=== PATIENT | male | born 1970 | race Caucasian/White ===

== ENCOUNTER 2020-03-07 18:55 | Emergency (ER) | payer MEDICAID ==
[~2020-03-07] VITALS: Ht 172.7 cm; Wt 75.0 kg
[2020-03-07 22:56] LABS: COVID AG,FIA SOURCE NASOPHARYNGEAL
[2020-03-07 23:01] LABS: BASOPHILS % (AUTO) 0.8 % (0.0-2.0); EOSINOPHILS % (AUTO) 3.2 % (1.0-6.0); HEMOGLOBIN 13.7 g/dL (13.5-17.5); LYMPHOCYTES # (AUTO) 2.1 K/uL (1.0-4.8); LYMPHOCYTES % (AUTO) 22.5 % (22.0-44.0); MEAN CORPUSCULAR HGB CONC 33.4 G/dL (31.0-37.0); MEAN CORPUSCULAR VOLUME 96 fL (80-100); MONOCYTES # (AUTO) 0.8 K/uL (0.1-1.0); MONOCYTES % (AUTO) 8.3 % (2.0-9.0); NEUTROPHILS # (AUTO) 6.2 K/uL (1.8-7.7); NEUTROPHILS % (AUTO) 65.2 % (40.0-70.0); PLATELET COUNT (AUTO) 283 K/uL (150-450); RED BLOOD CELL COUNT(AUTO) 4.28 MIL/uL (4.50-5.90); RED CELL DISTRIBUTION WIDTH 13.8 % (11.5-14.5)
[2020-03-07 23:15] LABS: ALANINE AMINOTRANSFERASE 41 U/L (12-78); ALKALINE PHOSPHATASE 90 U/L (46-116); ASPARTATE AMINOTRANSFERASE 30 U/L (15-37); BILIRUBIN,TOTAL 0.6 mg/dL (0.1-1.0); CALCIUM, TOTAL 9.6 mg/dL (8.8-10.5); CARBON DIOXIDE 27 mmol/L (22-29); GLOMERULAR FILTR. RATE CALC > 60 mL/min (>60); GLUCOSE,RANDOM 93 mg/dL (70-110); TOTAL PROTEIN, SERUM 8.8 g/dL (6.4-8.2); UREA NITROGEN, BLOOD 12 mg/dL (7-18)
[2020-03-07 23:22] LABS: ANION GAP 8 mmol/L (8-16); CHLORIDE 101 mmol/L (98-107); POTASSIUM 3.9 mmol/L (3.5-5.1); SODIUM SERUM 136 mmol/L (136-145)
[2020-03-08] MEDS ORDERED: IOVERSOL 350 MG/ML 100 ML VIAL ONE
[2020-03-08] MEDS ORDERED: SODIUM CHLORIDE 0.9% 100 ML ONE (00:01)
[2020-03-08 02:39] VITALS: BP 130/74
== END 2020-03-08 00:42 | disposition short-term general hospital (02) ==
LOC: EMS 18:55
DX: T17.298A Other foreign object in pharynx causing other injury, initial encounter (principal); F17.210 Nicotine dependence, cigarettes, uncomplicated; Z20.822 Contact with and (suspected) exposure to COVID-19; W45.8XXA Other foreign body or object entering through skin, initial encounter; Y93.89 Activity, other specified; Y92.89 Other specified places as the place of occurrence of the external cause; Y99.8 Other external cause status
CPT/HCPCS: 36415; 70490; 80053; 85025; 87426; 99285; J7050; Q9967

== ENCOUNTER 2020-08-29 10:02 | Emergency (ER) | payer MEDICAID ==
[~2020-08-29] VITALS: Ht 167.6 cm; Wt 68.2 kg
[2020-08-29] MEDS ORDERED: KETOROLAC TROMETHAMINE 60 MG/2 ML VIAL IM ONE (12:30)
[2020-08-29] MEDS ORDERED: OxyCODONE HCL/ACETAMINOPHEN 5-325 MG TABLET PO ONE (12:30)
[2020-08-29 13:25] VITALS: BP 131/70
== END 2020-08-29 13:26 | disposition home or self-care (01) ==
LOC: EMS 10:29
DX: S30.0XXA Contusion of lower back and pelvis, initial encounter (principal); S80.11XA Contusion of right lower leg, initial encounter; S20.212A Contusion of left front wall of thorax, initial encounter; W19.XXXA Unspecified fall, initial encounter; Y93.89 Activity, other specified; Y92.89 Other specified places as the place of occurrence of the external cause; Y99.8 Other external cause status
CPT/HCPCS: 29505; 71101; 72100; 73562; 96372; 99285; J1885

== ENCOUNTER 2021-02-26 12:01 | Emergency (ER) | payer MEDICAID ==
[~2021-02-26] VITALS: Ht 177.8 cm; Wt 72.7 kg
[2021-02-26] MEDS ORDERED: KETOROLAC TROMETHAMINE 10 MG TABLET PO ONE (13:45)
[2021-02-26] MEDS ORDERED: METHOCARBAMOL 500 MG TABLET PO ONE (13:45)
[2021-02-26 14:17] LABS: APPEARANCE,URINE CLEAR (CLEAR); BILIRUBIN,URINE NEGATIVE (NEGATIVE); GLUCOSE, URINE (UA) NEGATIVE (NEGATIVE); KETONES,URINE NEGATIVE (NEGATIVE); LEUKOCYTE ESTERASE ,URINE NEGATIVE (NEGATIVE); NITRATE,URINE NEGATIVE (NEGATIVE); OCCULT BLOOD,URINE NEGATIVE (NEGATIVE); PROTEIN,URINE NEGATIVE (NEGATIVE)
[2021-02-26 14:29] VITALS: BP 141/72
== END 2021-02-26 15:00 | disposition home or self-care (01) ==
LOC: EMS 12:04
DX: S20.212A Contusion of left front wall of thorax, initial encounter (principal); W18.39XA Other fall on same level, initial encounter; Y93.89 Activity, other specified; Y92.89 Other specified places as the place of occurrence of the external cause; Y99.8 Other external cause status
CPT/HCPCS: 81003; 99283

== ENCOUNTER 2021-11-22 19:44 | Emergency (ER) | payer MEDICAID ==
[~2021-11-22] VITALS: Ht 177.8 cm; Wt 72.0 kg
[2021-11-22] MEDS ORDERED: KETOROLAC TROMETHAMINE 30 MG/ML VIAL IM ONE (20:15)
[2021-11-22 20:32] LABS: APPEARANCE,URINE CLEAR (CLEAR); BILIRUBIN,URINE NEGATIVE (NEGATIVE); GLUCOSE, URINE (UA) NEGATIVE (NEGATIVE); KETONES,URINE NEGATIVE (NEGATIVE); LEUKOCYTE ESTERASE ,URINE NEGATIVE (NEGATIVE); NITRATE,URINE NEGATIVE (NEGATIVE); OCCULT BLOOD,URINE NEGATIVE (NEGATIVE); PROTEIN,URINE TRACE mg/dL (NEGATIVE); SPECIFIC GRAVITIY, URINE 1.024 (1.003-1.030)
[2021-11-22 21:49] VITALS: BP 138/86
== END 2021-11-22 21:51 | disposition home or self-care (01) ==
LOC: EMS 19:47
DX: R07.89 Other chest pain (principal); Z98.890 Other specified postprocedural states
CPT/HCPCS: 99284; 71045; 81003; 96372; J1885

== ENCOUNTER 2022-07-27 06:58 | Emergency (ER) | payer MEDICAID ==
[~2022-07-27] VITALS: Ht 172.7 cm; Wt 77.3 kg
[2022-07-27] MEDS ORDERED: PROPARACAINE HCL 0.5% 15 ML OPHTHALMIC SOLUTION OU ONE (07:30)
[2022-07-27] MEDS ORDERED: FLUORESCEIN SODIUM 1 MG STRIP OU ONE (07:30)
[2022-07-27] MEDS ORDERED: HYDR-4723 PO (09:08)
[2022-07-27] MEDS ORDERED: ERYT3.5O8 OD (09:08)
[2022-07-27 09:40] VITALS: BP 125/76
== END 2022-07-27 10:11 | disposition home or self-care (01) ==
LOC: EMS 06:59
DX: T15.01XA Foreign body in cornea, right eye, initial encounter (principal); F17.210 Nicotine dependence, cigarettes, uncomplicated; Z98.890 Other specified postprocedural states; W45.8XXA Other foreign body or object entering through skin, initial encounter; Y93.89 Activity, other specified; Y92.89 Other specified places as the place of occurrence of the external cause; Y99.8 Other external cause status
CPT/HCPCS: 99173; 99283

== ENCOUNTER 2022-12-08 10:03 | Emergency (ER) | payer MEDICAID ==
[~2022-12-08] VITALS: Ht 170.2 cm; Wt 72.7 kg
[~2022-12-08 10:03] MED LIST: ERYT3.5O8 OD; HYDR-4723 PO
[2022-12-08 12:07] VITALS: BP 138/77; PULSE 62; RESP 16; TEMP 97.6
[2022-12-08] MEDS ORDERED: LIDO1ADH63 TP (13:08)
[2022-12-08] MEDS ORDERED: CYCL-448 PO (13:09)
[2022-12-08] MEDS ORDERED: CYCLOBENZAPRINE HCL 10 MG TABLET PO ONE (13:15)
[2022-12-08] MEDS ORDERED: KETOROLAC TROMETHAMINE 30 MG/ML VIAL IM ONE (13:15)
[2022-12-08] MEDS ORDERED: LIDOCAINE 5% TRANSDERMAL PATCH TD ONE (13:15)
== END 2022-12-08 14:47 | disposition home or self-care (01) ==
LOC: EMS 10:03
DX: M54.2 Cervicalgia (principal); F17.210 Nicotine dependence, cigarettes, uncomplicated; Z98.890 Other specified postprocedural states
CPT/HCPCS: 71045; 72040; 99284; J1885

== ENCOUNTER 2023-11-25 22:16 | Emergency (ER) | payer MEDICAID ==
[~2023-11-25] VITALS: Ht 177.8 cm; Wt 72.7 kg
[~2023-11-25 22:16] MED LIST changes: +CYCL-448 PO; -ERYT3.5O8 OD; -HYDR-4723 PO; +LIDO1ADH63 TP
[2023-11-25 22:32] VITALS: TEMP 97.9
[2023-11-26 00:29] LABS: BASOPHILS % (AUTO) 0.9 % (0.0-2.0); EOSINOPHILS % (AUTO) 2.9 % (1.0-6.0); HEMATOCRIT 43.3 % (41-53); HEMOGLOBIN 14.4 g/dL (13.5-17.5); MEAN CORPUSCULAR HEMOGLOBIN 31.2 pg (26.0-34.0); MEAN CORPUSCULAR HGB CONC 33.3 G/dL (31.0-37.0); MEAN CORPUSCULAR VOLUME 94 fL (80-100); MONOCYTES # (AUTO) 0.7 K/uL (0.1-1.0); MONOCYTES % (AUTO) 6.4 % (2.0-9.0); NEUTROPHILS # (AUTO) 7.4 K/uL (1.8-7.7); NEUTROPHILS % (AUTO) 70.8 % (40.0-70.0); PLATELET COUNT (AUTO) 274 K/uL (150-450); RED BLOOD CELL COUNT(AUTO) 4.63 MIL/uL (4.50-5.90); RED CELL DISTRIBUTION WIDTH 13.8 % (11.5-14.5); WHITE BLOOD COUNT (AUTO) 10.4 K/uL (4.5-11.0)
[2023-11-26 00:39] LABS: ANION GAP 10 mmol/L (8-16); CALCIUM, TOTAL 9.8 mg/dL (8.8-10.5); CARBON DIOXIDE 28 mmol/L (22-29); CHLORIDE 100 mmol/L (98-107); CREATININE 0.92 mg/dL (0.60-1.30); GLOMERULAR FILTR. RATE CALC > 60 mL/min (>60); GLUCOSE,RANDOM 105 mg/dL (70-110); LIPASE 29 U/L (16-77); POTASSIUM 3.9 mmol/L (3.5-5.1); SODIUM SERUM 138 mmol/L (136-145); UREA NITROGEN, BLOOD 13 mg/dL (7-18)
[2023-11-26] MEDS: IOHEXOL 9 MG/ML 500 ML BOTTLE PO ONE (00:43)
[2023-11-26] MEDS: SODIUM CHLORIDE 0.9% 1,000 ML IV ONE ×2 (00:43→03:29)
[2023-11-26] MEDS: MORPHINE SULFATE 4 MG/ML SYRINGE IVP ONE (00:44)
[2023-11-26] MEDS: ONDANSETRON HCL 4 MG/2 ML VIAL IVP ONE ×2 (00:44→03:29)
[2023-11-26 00:47] LABS: TROPONIN I-HIGH SENSITIVITY 6 ng/L (<76)
[2023-11-26 00:55] LABS: APPEARANCE,URINE CLEAR (CLEAR); BILIRUBIN,URINE NEGATIVE (NEGATIVE); COLOR,URINE YELLOW (YELLOW); GLUCOSE, URINE (UA) NEGATIVE (NEGATIVE); KETONES,URINE NEGATIVE (NEGATIVE); LEUKOCYTE ESTERASE ,URINE NEGATIVE (NEGATIVE); NITRATE,URINE NEGATIVE (NEGATIVE); OCCULT BLOOD,URINE NEGATIVE (NEGATIVE); PROTEIN,URINE TRACE mg/dL (NEGATIVE); SPECIFIC GRAVITIY, URINE 1.031 (1.003-1.030); UROBILINOGEN,URINE <=1.0 mg/dL (<=1.0)
[2023-11-26 01:05] LABS: BACTERIA,URINE None Seen /HPF (None Seen); RBC,URINE None Seen /HPF (0-2); SQUAMOUS EPITHELIAL CELL,UR Few /LPF (None Seen); WBC,URINE None Seen /HPF (0-5)
[2023-11-26 01:06] LABS: LACTIC ACID 0.7 mmol/L (0.4-2.0)
[2023-11-26] MEDS ORDERED: SODIUM CHLORIDE 0.9% 100 ML ONE (01:12)
[2023-11-26] MEDS ORDERED: IOHEXOL 350 MG/ML 100 ML VIAL ONE (01:12)
[2023-11-26 03:23] VITALS: BP 102/61; PULSE 85; RESP 20; O2SAT 98
[2023-11-26] MEDS: ACETAMINOPHEN 500 MG TABLET PO ONE (03:29)
[2023-11-26] MEDS ORDERED: ACET-66 PO (03:46)
[2023-11-26] MEDS ORDERED: OMEP20 PO (03:46)
[2023-11-26] MEDS ORDERED: ONDA-104 PO (03:46)
== END 2023-11-26 04:18 | disposition home or self-care (01) ==
LOC: EMS 22:16
DX: K52.9 Noninfective gastroenteritis and colitis, unspecified (principal); K56.600 Partial intestinal obstruction, unspecified as to cause; F17.210 Nicotine dependence, cigarettes, uncomplicated
CPT/HCPCS: 99285; 80048; 81001; 83605; 83690; 84484; 85025; 36415; 74177; 96374; 96361; 71045; 96375; 93005; 96376; Q9967 ×2; J2270; J2405; J7030; J7050

== ENCOUNTER 2025-01-12 07:35 | Emergency (ER) | payer MEDICAID ==
[~2025-01-12] VITALS: Ht 167.6 cm; Wt 75.5 kg
[~2025-01-12 07:35] MED LIST changes: +ACET-66 PO; +OMEP-148 PO; +ONDA-104 PO
[2025-01-12 07:41] VITALS: BP 102/68; PULSE 77; RESP 18; TEMP 97.7; O2SAT 99
[2025-01-12] MEDS: FLUORESCEIN SODIUM 1 MG STRIP OD ONE (08:56)
[2025-01-12] MEDS: GENTAMICIN SULFATE 0.1% 15 GM OINTMENT TP ONE (10:48)
[2025-01-12] MEDS: SULFACETAMIDE SODIUM 10% 15 ML OPHTHALMIC SOLUTION OS ONE (10:48)
[2025-01-12] MEDS: GENTAMICIN SULFATE 0.3% OPHTHALMIC SOLUTION 5 ML OS ONE (10:51)
[2025-01-12] MEDS: ERYTHROMYCIN 0.5% 3.5 GM TUBE OPHTHALMIC OINTMENT OS ONE (10:51)
== END 2025-01-12 10:58 | disposition home or self-care (01) ==
LOC: EMS 07:35
DX: S05.02XA Injury of conjunctiva and corneal abrasion without foreign body, left eye, initial encounter (principal); F17.210 Nicotine dependence, cigarettes, uncomplicated; Z98.890 Other specified postprocedural states; X58.XXXA Exposure to other specified factors, initial encounter; Y93.89 Activity, other specified; Y92.89 Other specified places as the place of occurrence of the external cause; Y99.8 Other external cause status
CPT/HCPCS: 99283